=== PATIENT | male | born 1940 | race Caucasian/White ===

== ENCOUNTER 2021-10-21 19:36 | Emergency (ER) | payer MEDICARE ==
[~2021-10-21] VITALS: Ht 180.3 cm; Wt 95.5 kg
[~2021-10-21 19:36] MED LIST: ACIDOPHILU3 PO; COLACE100 MG PO; FISH OIL PO; FLORANEX PO; FOSINOPRIL10 MG PO; HYDROCHLORO25 MG/TAB PO; LASIX 10 MG10 MG/TA1 PO; LASIX 20 MG TAB20 MG PO; LASIX 40 MG TAB40 MG PO; LIPITOR40 M1 PO; LORTAB 7.57.5 MG PO; MAGNESIUM400 MG PO; MEROPENEM1 GM IV; METOPROL TAR25 M1 PO; MICRO-K10 ME1 PO; OXYCODONE5 M1 PO; PROTONIX40 M2 PO; STOOL SOFTE1 PO
[2021-10-21 20:19] LABS: HEMATOCRIT 40.6 % (39.0-50.0); HEMOGLOBIN 13.7 g/dl (14.0-18.0); IMMATURE GRANULOCYTES 0.5 % (0.0-5.0); MEAN CELL VOLUME 90.2 fL CALC (80.0-100.0); MEAN CORPUSCULAR HGB 30.4 pG CALC (26.0-32.0); MEAN CORPUSCULAR HGB CONC 33.7 g/dL CAL (32.0-36.0); NEUT# 3.86 thou/uL (1.82-7.42); RED BLOOD COUNT 4.5 mill/uL (4.70-6.10); RED CELL DISTRI WIDTH 12.5 % (11.5-15.5)
[2021-10-21 20:30] LABS: ALBUMIN 3.7 g/dL (3.2-5.0); ALKALINE PHOSPHATASE 60 u/l (38-126); ANION GAP 14 (6-22 (CALC)); BILIRUBIN, TOTAL 0.8 mg/dL (0.0-1.4); BUN 18 mg/dL (8-23); BUN/CREATININE RATIO 17 (12-20 (CALC)); CARBON DIOXIDE 26 mmol/l (22-30); CHLORIDE 99 mmol/l (95-108); GFR > 60 ML/MIN (>=60 (CALC)); GFR FOR AFR.AMER. > 60 ML/MIN (>=60 (CALC)); POTASSIUM 3.8 mmol/l (3.5-5.1); SODIUM 135 mmol/l (137-146); TOTAL PROTEIN 6.8 g/dL (6.3-8.2)
[2021-10-21 20:32] LABS: SGOT/AST 91 u/l (19-48)
[2021-10-21 20:42] LABS: MYOGLOBIN 370 ng/mL (0 - 121)
[2021-10-21 20:45] LABS: ACT PARTIAL THROMBO TIME 22.5 SECONDS (20.0-32.5); PROTHROMBIN TIME 10.2 SECONDS (9.0-12.5)
[2021-10-21 20:52] LABS: D-DIMER 1.38 mg/L (0.19-0.60)
[2021-10-21] MEDS ORDERED: LEVOTHYROXIN50 MCG PO (21:54)
[2021-10-22 00:34] LABS: URINE BILIRUBIN - DIPSTICK NEGATIVE (NEGATIVE); URINE BLOOD DIPSTICK MODERATE (NEGATIVE); URINE COLOR YELLOW; URINE GLUCOSE - DIPSTICK NEGATIVE (NEGATIVE); URINE KETONE 15 mg/dL (NEGATIVE); URINE LEUK ESTERASE NEGATIVE (NEGATIVE); URINE PROTEIN - DIPSTICK 100 mg/dL (NEG-TRACE); URINE UROBILINOGEN - DIPSTICK 0.2 E.U./dL (0.2)
[2021-10-22 00:53] LABS: URINE NITRITE - DIPSTICK NEGATIVE (Negative)
[2021-10-22 00:55] VITALS: BP 110/63
[2021-10-22 01:03] LABS: URINE BACTERIA FEW hpf; URINE SQUAMOUS EPITHELIAL CELL FEW EPI/hpf (0-FEW)
--- NOTE | 2021-10-23 13:17 | NUR ---
Received patient preliminary result for blood culture and called [facility] spoke to David the nurse taking care of this patient. Fax the results to him on the fax number [phone].
--- NOTE | 2021-10-24 10:18 | NUR ---
Received final blood culture results of Staphylococcus Hominis growth and faxed the results to Rodrigo MELTON) at [facility] [phone]
== END 2021-10-22 01:05 | disposition short-term general hospital (02) ==
LOC: ED 19:36
PROVIDERS: Family Medicine
DX: U07.1 COVID-19 (principal); J12.82 Pneumonia due to coronavirus disease 2019; R79.89 Other specified abnormal findings of blood chemistry; I10 Essential (primary) hypertension
CPT/HCPCS: Q9967